=== PATIENT | female | born 1990 | race Caucasian/White ===

== ENCOUNTER 2016-12-14 15:15 | Emergency (ER) | payer SELFPAY ==
[2016-12-14 15:25] VITALS: BP 108/85; BMI 19.7
[2016-12-14] MEDS ORDERED: TORADOL 60 MG VIAL IM ONE (16:04)
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
[2016-12-14] MEDS ORDERED: TORADOL 60 MG VIAL ONE (16:11)
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
[2016-12-14] MEDS ORDERED: ADACEL TDaP IM ONE ×2 (16:51→16:53)
[2016-12-14] MEDS ORDERED: NEOSPORIN OINT ONE (17:02)
== END 2016-12-14 17:25 | disposition home or self-care (01) ==
LOC: ER 15:32
DX: S61.411A Laceration without foreign body of right hand, initial encounter (principal); W01.110A Fall on same level from slipping, tripping and stumbling with subsequent striking against sharp glass, initial encounter; Y92.9 Unspecified place or not applicable
CPT/HCPCS: 73130; 90471; 96372; 99283; J1885